=== PATIENT | female | born 1970 | race African-American/Black ===

== ENCOUNTER 2020-05-31 11:46 | Emergency (ER) | payer OTHER, SELFPAY ==
[2020-05-31 12:04] VITALS: BP 127/74; PULSE 68; RESP 16; TEMP 36.3; O2SAT 100
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
== END 2020-05-31 12:34 | disposition home or self-care (01) ==
PROVIDERS: Emergency Provider Nurse Practitioner
DX: M25.512 Pain in left shoulder (principal); M54.5 Low back pain; V43.52XA Car driver injured in collision with other type car in traffic accident, initial encounter; I10 Essential (primary) hypertension; G47.30 Sleep apnea, unspecified; G47.419 Narcolepsy without cataplexy
CPT/HCPCS: 99203; G0463

== ENCOUNTER 2023-05-07 14:23 | Outpatient (CLI) | payer OTHER, SELFPAY | END 2023-05-07 14:24 | disposition home or self-care (01) | PROVIDERS: Visit Provider Otolaryngology | DX: H90.3 Sensorineural hearing loss, bilateral (principal) | CPT/HCPCS: 92557; 92567 ==

== ENCOUNTER 2024-03-22 16:21 | Emergency (ER) | payer OTHER, SELFPAY ==
[2024-03-22 16:37] VITALS: BP 145/77; PULSE 78; RESP 16; TEMP 36.6; O2SAT 97
--- NOTE | 2024-03-22 17:20 | ED.GENADULT ---
HPI - General Adult General Chief complaint: Abdominal Pain Stated complaint: Abdominal Pain Time Seen by Provider: 03/22/24 17:10 Source: patient, RN notes reviewed and old records reviewed Mode of arrival: ambulatory Limitations: no limitations History of Present Illness HPI narrative: 53 year old female who presents to [facility] care with complaints of 2 day history of right upper abdominal quadrant pain with pain increasing today and now having nausea with no emesis. Patient has palpable Coles point tenderness with increased pain with movement. Patient reports that she went to work today but she really wasn't able to do much without pain getting worse. Patient reports that she has been on a low carbohydrate diet for the past month and has lost from 259 to 234. Patient reports no radiation of pain to her back denies any chest pain or any shortness of breath. Patient reports that she does have history of GERD and takes prilosec daily. MD complaint: abdomen pain right upper quadrant Onset (ago): day(s) (2) Location: abdomen (RUQ) Severity: moderate Quality: aching Exacerbating factors: eating and movement Treatments prior to arrival: none Related Data Home Medications Medication Instructions Recorded Confirmed amlodipine 5 mg tablet 5 mg PO DAILY 05/31/20 05/31/20 calcium carbonate 600 mg-vitamin 1 tablet PO DAILY 05/31/20 05/31/20 D3 10 mcg (400 unit) tablet (Calcium 600 + D(3)) cetirizine 10 mg tablet (Zyrtec) 10 mg PO DAILY 05/31/20 05/31/20 dextroamphetamine-amphetamine 30 30 mg PO DAILY 05/31/20 05/31/20 mg tablet (Adderall) hydrochlorothiazide 25 mg tablet 25 mg PO DAILY 05/31/20 05/31/20 metoprolol tartrate 25 mg tablet 25 mg PO DAILY 05/31/20 05/31/20 modafinil 200 mg tablet 200 mg PO QAM 05/31/20 05/31/20 omeprazole 20 mg capsule,delayed 20 mg PO DAILY 05/31/20 05/31/20 release potassium chloride 10 mEq 10 meq PO DAILY 05/31/20 05/31/20 capsule,extended release Allergies Allergy/AdvReac Type Severity Reaction Status Date / Time No Known Allergies Allergy Verified 05/31/20 12:20 Review of Systems Review of Systems: CONSTITUTIONAL: Denies fever, chills, or sweats. EYES: Denies visual changes, redness, or discharge. ENT: Denies rhinorrhea, congestion, sore throat, or otalgia. CARDIOVASCULAR: Denies chest pain, palpitations, or edema. RESPIRATORY: Denies cough or dyspnea. GASTROINTESTINAL: Reports right upper abdominal pain, nausea, no vomiting, or diarrhea. GENITOURINARY: Denies dysuria or hematuria. SKIN: Denies rash or itching. MUSCULOSKELETAL: Denies back pain, joint pain, or myalgia. NEUROLOGIC: Denies headache, numbness, or weakness. PSYCHIATRIC: Denies anxiety or depression. All systems reviewed & are unremarkable except as noted in HPI and below PMFSH Past Medical History Medical History (Updated 03/23/24 @ 16:38 by Natividad Dong NP) Arthritis GERD (gastroesophageal reflux disease) HTN (hypertension) Narcolepsy Sleep apnea uses C PAP Surgical History Surgical History (Updated 03/23/24 @ 16:28 by Natividad Dong NP) H/O removal of neck cyst H/O repair of left rotator cuff Social History Social History (Updated 03/23/24 @ 16:30 by Natividad Dong NP) Smoking status: Never smoker Alcohol intake: current Alcohol use details: rare social Substance use type: does not use Gender identity (if verbalized by the patient): Female Comments At time of signature, agree with nursing past medical, surgical, social and family history. There is no relevant family history pertinent to the presenting complaint Exam Narrative: GENERAL: Well-appearing, well-nourished,obese and in no acute distress. HEAD: Normocephalic, atraumatic. EYES: PERRLA and EOMI. ENT: Nares clear, no rhinorrhea or epistaxis. Mucous membranes moist. NECK: Supple.no lymphadenopathy CHEST: Clear to auscultation. No respiratory distress.SAO2 97% on room air HEART: Regular rate and rhythm. No
== END 2024-03-22 17:49 | disposition short-term general hospital (02) ==
LOC: EXPBETH 16:26
PROVIDERS: Emergency Provider Registered Nurse; PCP Nurse Practitioner Family
DX: R10.11 Right upper quadrant pain (principal); M19.90 Unspecified osteoarthritis, unspecified site; K21.9 Gastro-esophageal reflux disease without esophagitis; I10 Essential (primary) hypertension; G47.30 Sleep apnea, unspecified; G47.419 Narcolepsy without cataplexy
CPT/HCPCS: 99212; G0463